=== PATIENT | female | born 1975 | race Caucasian/White ===

== ENCOUNTER → 2019-06-15 11:42 | Outpatient (BNVA) | payer BC, SELFPAY | PROVIDERS: Family Provider Nurse Practitioner; PCP Nurse Practitioner; Visit Provider Nurse Practitioner | DX: M79.641 Pain in right hand (principal) | CPT/HCPCS: 73130 ==

== ENCOUNTER → 2019-06-17 13:55 | Outpatient (BNVA) | payer BC, SELFPAY | PROVIDERS: Family Provider Nurse Practitioner; PCP Nurse Practitioner; Visit Provider Nurse Practitioner | DX: G89.29 Other chronic pain (principal); M54.41 Lumbago with sciatica, right side; F17.210 Nicotine dependence, cigarettes, uncomplicated; Z79.891 Long term (current) use of opiate analgesic | CPT/HCPCS: 99213 ==

== ENCOUNTER → 2019-07-15 12:44 | Outpatient (BNVA) | payer BC, SELFPAY | PROVIDERS: Family Provider Nurse Practitioner; PCP Nurse Practitioner; Visit Provider Nurse Practitioner | DX: G89.29 Other chronic pain (principal); M54.41 Lumbago with sciatica, right side; F17.210 Nicotine dependence, cigarettes, uncomplicated; Z79.891 Long term (current) use of opiate analgesic | CPT/HCPCS: 99213 ==

== ENCOUNTER → 2019-08-31 10:54 | Outpatient (BNVA) | payer BC, SELFPAY | PROVIDERS: Family Provider Nurse Practitioner; PCP Nurse Practitioner; Visit Provider Nurse Practitioner | DX: I10 Essential (primary) hypertension (principal); M54.41 Lumbago with sciatica, right side; E89.41 Symptomatic postprocedural ovarian failure; R12 Heartburn; J30.1 Allergic rhinitis due to pollen; E78.5 Hyperlipidemia, unspecified; K59.01 Slow transit constipation; R20.2 Paresthesia of skin; R73.9 Hyperglycemia, unspecified | CPT/HCPCS: 80053; 80061; 83036 ==

== ENCOUNTER → 2019-12-08 11:42 | Outpatient (BNVA) | payer BC, SELFPAY | PROVIDERS: Family Provider Nurse Practitioner; PCP Nurse Practitioner; Visit Provider Nurse Practitioner Family | DX: M18.12 Unilateral primary osteoarthritis of first carpometacarpal joint, left hand (principal); M79.642 Pain in left hand; M79.89 Other specified soft tissue disorders | CPT/HCPCS: 73130; 84550; 85651; 86038; 86140; 86431 ==

== ENCOUNTER → 2020-01-10 11:00 | Outpatient (BNVA) | payer BC, SELFPAY | PROVIDERS: Family Provider Nurse Practitioner; PCP Nurse Practitioner; Visit Provider Nurse Practitioner Family | DX: Z20.828 Contact with and (suspected) exposure to other viral communicable diseases (principal); R51 Headache; R11.0 Nausea | CPT/HCPCS: 87635 ==

== ENCOUNTER → 2020-01-25 14:11 | Outpatient (BNVA) | payer BC, SELFPAY | PROVIDERS: Family Provider Nurse Practitioner; PCP Nurse Practitioner; Visit Provider Nurse Practitioner Family | DX: M25.571 Pain in right ankle and joints of right foot (principal); S99.919A Unspecified injury of unspecified ankle, initial encounter; X58.XXXA Exposure to other specified factors, initial encounter | CPT/HCPCS: 73610 ==

== ENCOUNTER → 2020-02-08 10:01 | Outpatient (BNVA) | payer BC, SELFPAY | PROVIDERS: Family Provider Nurse Practitioner; PCP Nurse Practitioner; Visit Provider Internal Medicine Rheumatology | DX: M05.79 Rheumatoid arthritis with rheumatoid factor of multiple sites without organ or systems involvement (principal); Z79.899 Other long term (current) drug therapy; Z11.59 Encounter for screening for other viral diseases; Z11.1 Encounter for screening for respiratory tuberculosis; G56.01 Carpal tunnel syndrome, right upper limb; F17.210 Nicotine dependence, cigarettes, uncomplicated | CPT/HCPCS: 36415; 80076; 82306; 82565; 85025; 86480; 86704; 86803; 87340; 99204 ==

== ENCOUNTER 2020-02-15 11:48 | Outpatient (CLI) | payer BC, SELFPAY ==
--- NOTE | 2020-02-15 12:03 | XR_ITS ---
WS: [id number] PROCEDURE: XR chest 2V* [id number] CLINICAL INFORMATION: rheumatoid arthritis COMPARISON: February 09, 2018 FINDINGS: Heart: Normal cardiac silhouette. Lungs: Lungs are clear. No consolidation or pleural fluid. Bones: Normal visualized bony structures. XR/XR chest 2V* [id number] IMPRESSION: No acute chest findings.
== END 2020-02-15 11:49 | disposition home or self-care (01) ==
LOC: RADWPI 11:52
PROVIDERS: Family Provider Nurse Practitioner; PCP Nurse Practitioner; Visit Provider Internal Medicine Rheumatology
DX: M05.9 Rheumatoid arthritis with rheumatoid factor, unspecified (principal)
CPT/HCPCS: 71046

== ENCOUNTER → 2020-02-17 09:10 | Outpatient (BNVA) | payer BC, SELFPAY | PROVIDERS: Family Provider Nurse Practitioner; PCP Nurse Practitioner; Visit Provider Nurse Practitioner | DX: E11.69 Type 2 diabetes mellitus with other specified complication (principal); E66.9 Obesity, unspecified; E04.9 Nontoxic goiter, unspecified | CPT/HCPCS: 80048; 80061; 83036; 84443 ==

== ENCOUNTER → 2020-02-22 10:53 | Outpatient (BNVA) | payer BC, SELFPAY | PROVIDERS: Family Provider Nurse Practitioner; PCP Nurse Practitioner; Visit Provider Internal Medicine Rheumatology | DX: Z79.899 Other long term (current) drug therapy (principal) | CPT/HCPCS: 36415; 80076; 82565; 85025; 85651; 86140 ==

== ENCOUNTER → 2020-04-16 09:11 | Outpatient (BNVA) | payer BC, SELFPAY | PROVIDERS: PCP Nurse Practitioner; Visit Provider Internal Medicine Rheumatology | DX: Z79.899 Other long term (current) drug therapy (principal); Z11.59 Encounter for screening for other viral diseases | CPT/HCPCS: 36415; 87517 ==

== ENCOUNTER → 2020-05-23 11:28 | Outpatient (BNVA) | payer BC, SELFPAY | PROVIDERS: PCP Nurse Practitioner; Visit Provider Nurse Practitioner | DX: E11.69 Type 2 diabetes mellitus with other specified complication (principal); E66.9 Obesity, unspecified; I10 Essential (primary) hypertension; J30.1 Allergic rhinitis due to pollen; M54.41 Lumbago with sciatica, right side; E89.41 Symptomatic postprocedural ovarian failure; E78.5 Hyperlipidemia, unspecified; R19.5 Other fecal abnormalities; K59.01 Slow transit constipation; M25.561 Pain in right knee | CPT/HCPCS: 80053 ==

== ENCOUNTER → 2020-06-06 09:03 | Outpatient (BNVA) | payer BC, SELFPAY | PROVIDERS: PCP Nurse Practitioner; Visit Provider Nurse Practitioner | DX: R19.5 Other fecal abnormalities (principal); M25.561 Pain in right knee | CPT/HCPCS: 73562; 74018 ==

== ENCOUNTER → 2020-06-08 10:52 | Outpatient (BNVA) | payer BC, SELFPAY | PROVIDERS: PCP Nurse Practitioner; Visit Provider Nurse Practitioner Family | DX: Z20.828 Contact with and (suspected) exposure to other viral communicable diseases (principal); J06.9 Acute upper respiratory infection, unspecified | CPT/HCPCS: 87635 ==

== ENCOUNTER → 2020-07-26 10:38 | Outpatient (BNVA) | payer BC, SELFPAY | PROVIDERS: PCP Nurse Practitioner; Visit Provider Nurse Practitioner Family | DX: M05.79 Rheumatoid arthritis with rheumatoid factor of multiple sites without organ or systems involvement (principal); M19.90 Unspecified osteoarthritis, unspecified site; Z79.899 Other long term (current) drug therapy | CPT/HCPCS: 80076; 82565; 85025; 86140 ==

== ENCOUNTER → 2020-10-11 08:21 | Outpatient (BNVA) | payer BC, SELFPAY | PROVIDERS: PCP Nurse Practitioner; Visit Provider Internal Medicine Rheumatology | DX: M05.79 Rheumatoid arthritis with rheumatoid factor of multiple sites without organ or systems involvement (principal); Z79.899 Other long term (current) drug therapy | CPT/HCPCS: 36415; 80076; 82565; 85025; 86140 ==

== ENCOUNTER → 2020-10-15 12:40 | Outpatient (BNVA) | payer BC, SELFPAY | PROVIDERS: PCP Nurse Practitioner; Visit Provider Internal Medicine Rheumatology | DX: M05.79 Rheumatoid arthritis with rheumatoid factor of multiple sites without organ or systems involvement (principal); Z79.899 Other long term (current) drug therapy; E66.9 Obesity, unspecified; Z68.41 Body mass index [BMI] 40.0-44.9, adult; F17.210 Nicotine dependence, cigarettes, uncomplicated; E11.9 Type 2 diabetes mellitus without complications | CPT/HCPCS: 99214 ==

== ENCOUNTER → 2020-11-21 08:28 | Outpatient (BNVA) | payer BC, SELFPAY | PROVIDERS: PCP Nurse Practitioner; Visit Provider Nurse Practitioner | DX: E11.69 Type 2 diabetes mellitus with other specified complication (principal); E66.9 Obesity, unspecified; E78.2 Mixed hyperlipidemia | CPT/HCPCS: 80053; 80061; 83036; 84443 ==

== ENCOUNTER → 2021-03-14 08:50 | Outpatient (BNVA) | payer BC, SELFPAY | PROVIDERS: PCP Nurse Practitioner; Visit Provider Nurse Practitioner | DX: I10 Essential (primary) hypertension (principal); J45.20 Mild intermittent asthma, uncomplicated; J30.1 Allergic rhinitis due to pollen; M54.41 Lumbago with sciatica, right side; E89.41 Symptomatic postprocedural ovarian failure; E11.69 Type 2 diabetes mellitus with other specified complication; E66.9 Obesity, unspecified; K59.01 Slow transit constipation; E78.2 Mixed hyperlipidemia; Z23 Encounter for immunization; M05.79 Rheumatoid arthritis with rheumatoid factor of multiple sites without organ or systems involvement; Z79.899 Other long term (current) drug therapy | CPT/HCPCS: 80053; 80061; 80076; 82043; 82565; 83036; 85025; 86140 ==

== ENCOUNTER → 2021-03-26 09:28 | Outpatient (BNVA) | payer BC, SELFPAY | PROVIDERS: PCP Nurse Practitioner; Visit Provider Internal Medicine Rheumatology | DX: M05.79 Rheumatoid arthritis with rheumatoid factor of multiple sites without organ or systems involvement (principal); Z79.899 Other long term (current) drug therapy; E11.69 Type 2 diabetes mellitus with other specified complication; E66.9 Obesity, unspecified; Z68.41 Body mass index [BMI] 40.0-44.9, adult; Z71.89 Other specified counseling; F17.200 Nicotine dependence, unspecified, uncomplicated | CPT/HCPCS: 99214 ==

== ENCOUNTER 2021-04-14 15:35 | Emergency (ER) | payer BC, SELFPAY ==
[2021-04-14 15:50] VITALS: BP 142/87; PULSE 73; RESP 16; TEMP 36.9; O2SAT 95; BMI 46.9
[2021-04-14 16:35] VITALS: BP 139/85; PULSE 77; RESP 20; O2SAT 96
--- NOTE | 2021-04-14 16:41 | ED_ITS ---
HPI - Extremity Problem General: Chief complaint: Extremity Injury, Lower Stated complaint: RIGHT LEG PAIN Time Seen by Provider: 04/14/21 16:34 History of Present Illness: HPI Narrative: Patient is a 46-year-old female who comes to the ED with lower back pain that radiates down right leg. Pain started last night while laying down. Patient says she is had this pain in the past but says this time its little more painful. She describes the pain as sharp and she rates it a 10 out of 10. She says standing up and ambulating causes more pain radiating down her right leg. She denies any injury, trauma or accident to cause acute onset of pain. Denies any bladder or bowel incontinence, pelvic anesthesia or any weakness to lower extremities. Associated symptoms: Deny chest pain, fever(s) or rash Review of Systems Const: Denies: fever(s), chills or fatigue Eyes: Denies: change in vision or eye discomfort ENMT: Denies: throat pain, odynophagia, nasal discharge or nasal congestion Card: Denies: chest pain, palpitations, edema, swelling of feet/ankles, dyspnea on exertion or orthopnea Resp: Denies: dyspnea, productive cough or non-productive cough GI: Denies: abdominal pain, nausea, vomiting, diarrhea, constipation or hematochezia : Denies: flank pain, dysuria or hematuria Musc: Reports: back pain (Lower back pain that radiates down into her right leg.); Denies: neck pain or extremity swelling Skin/Breast: Denies: rash or new lesions Neuro: Denies: headache(s), numbness in extremities or weakness in extremities [facility] ED PFSH: Medical History (Updated 04/14/21 @ 16:49 by ELVIS Smith) Asthma, mild intermittent Chronic bilateral low back pain with right-sided sciatica Chronic heartburn Constipation due to slow transit Diabetes mellitus type 2 in obese Encounter for long-term (current) use of NSAIDs Encounter for long-term use of opiate analgesic Encounter for smoking cessation counseling Essential (primary) hypertension High risk medication use Hyperlipidemia, unspecified Immunization counseling Opioid contract exists Seasonal allergic rhinitis due to pollen Seropositive rheumatoid arthritis of multiple sites Surgical menopause, symptomatic Surgical History History of colonoscopy 2017 History of hysterectomy 2007 with BSO Family History Mother Cancer Father Hypertension COPD exacerbation Other Diabetes Rheumatoid arthritis Denies family history of Lupus Social History Second hand smoke exposure: Yes Smoking risk assessment/counseling performed?: Yes Alcohol intake: current Alcohol intake frequency: holidays/special occasions only Desire information about alcohol rehabilitation?: No Counseling given: No Desire information about substance/drug rehabilitation?: No Counseling given: No Caregiver/support person: No Lives independently: Yes Household members: significant other Housing: House Marital status: Single Number of children: 0 Current occupational status: employed Current occupation: [employer] History of recent travel: No Current gender identity: Female Physical Exam Const: COMMON NORMALS: patient oriented x3 HENMT: COMMON NORMALS: normocephalic HEAD & SCALP: normocephalic MOUTH: Normal oral and palatal mucosa present THROAT: posterior oropharynx normal and uvula midline Neck/C-Spine: COMMON NORMALS: supple GENERAL: Yes normal visual inspection Resp: COMMON NORMALS: normal respiratory effort, No retractions, No use of accessory muscles and clear to auscultation bilaterally AUSCULTATION: clear to auscultation bilaterally Cardio: COMMON NORMALS: regular rate, regular rhythm, S1 normal heart sound present, S2 normal heart sound present, No gallops present (Cardio), No clicks present (Cardio), No murmurs present (Cardio) and Peripheral pulses 2+ throughout RATE: regular rate RHYTHM: regular rhythm HEART SOUNDS: S1 normal heart sound present and S2 normal heart sound present PERIPHERAL PULSES: Peripheral pulses 2+ throughout GI: COMMON NORMALS: Normal to inspection, nondistended, normoactive bowel sounds present, Soft to palpation, non-tender and no masses PALPATION: Yes Soft to palpation : COMMON NORMALS: Yes no CVA tenderness BLADDER/KIDNEY EXAM: Yes no CVA tenderness Back/Pelvis: COMMON NORMALS: no CVA tenderness LUMBAR SPINE/LOWER BACK: Yes pain with ROM, Yes paraspinal muscle tenderness Lumbar paraspinal muscle tenderness: right Right lumbar paraspinal muscle tenderness: L4 and L5 and Yes straight leg raise positive right Extremity: COMMON NORMALS: normal to inspection Neuro: COMMON NORMALS: patient oriented x3 and moves all extremities Skin: GENERAL SKIN EXAM: dry skin Course Vital Signs: Vital signs: Vital Signs Temperature 98.4 F 04/14/21 15:50 Pulse Rate 77 04/14/21 16:35 Respiratory Rate 20 H 04/14/21 16:35 Blood Pressure 139/85 04/14/21 16:35 Pulse Oximetry 96 04/14/21 16:35 MDM - Extremity (Nontraumatic) MDM Narrative: Medical decision making narrative: Patient is a 46-year-old female comes to the ED with acute on chronic lower back pain. Pain radiates down the right leg. Denies any trauma, injury or fall to cause symptoms. De nies any cauda equina symptoms. Vital stable. Patient diagnosed with lumbar radiculopathy she was discharged home with a prescription for Celebrex, cyclobenzaprine and prednisone. She is told to follow-up with her PCP in 7 to 10 days for reevaluation. Return to ED precautions given. Patient understood and agree with plan. Discharge Plan Discharge Patient Disposition: Home Clinical Impression: Lumbar radiculopathy Condition: Stable Prescriptions: New Celebrex 100 mg capsule 100 mg PO BID PRN (Reason: pain) Qty: 20 RF: 0 prednisone 20 mg tablet 20 mg PO BID 5 Days Qty: 10 RF: 0 cyclobenzaprine 10 mg tablet 10 mg PO BID PRN (Reason: muscle spasm) Qty: 20 RF: 0 No Action lisinopril 40 mg tablet 40 mg PO DAILY Qty: 30 RF: 2 albuterol sulfate [ProAir HFA] 90 mcg/actuation HFA aerosol inhaler 2 inh INHALATION QID PRN (Reason: shortness of breath or wheezing) Qty: 8.5 RF: 2 cetirizine 10 mg tablet 10 mg PO DAILY Qty: 30 RF: 2 duloxetine 20 mg capsule,delayed release(DR/EC) 20 mg PO BID Qty: 60 RF: 2 estradiol 0.5 mg tablet 0.5 mg PO DAILY Qty: 30 RF: 2 furosemide 20 mg tablet 20 mg PO DAILY Qty: 30 RF: 2 Victoza 2-Chandler 0.6 mg/0.1 mL (18 mg/3 mL) pen injector 0.6 mg SUBCUT DAILY Qty: 6 RF: 2 magnesium oxide 400 mg (241.3 mg magnesium) tablet 400 mg PO BID Qty: 60 RF: 2 rosuvastatin 40 mg tablet 40 mg PO DAILY Qty: 30 RF: 2 cyclobenzaprine 10 mg tablet 10 mg PO TID PRN (Reason: muscle spasm) Qty: 90 RF: 1 hydrocodone-acetaminophen 5-325 mg tablet 1 tab PO BID PRN (Reason: pain) 30 Days Qty: 60 RF: 0 methocarbamol 500 mg tablet 500 mg PO TID PRN (Reason: muscle spasm) Qty: 90 RF: 1 naproxen [EC-Naprosyn] 500 mg tablet,delayed release (DR/EC) 500 mg PO BID PRN (Reason: pain) Qty: 60 RF: 1 ipratropium-albuterol 0.5 mg-3 mg(2.5 mg base)/3 mL solution for nebulization 3 ml INHALATION QID PRNRF: 0 multivitamin Capsule 1 cap PO DAILY RF: 0 cholecalciferol (vitamin D3) 25 mcg (1,000 unit) capsule 25 mcg PO DAILY RF: 0 acetaminophen [Arthritis Pain Relief (acetam)] 650 mg tablet extended release 650 mg PO Q12H RF: 0 Enbrel SureClick 50 mg/mL (1 mL) pen injector 50 mg SUBCUT .Q7days Qty: 4 RF: 3 methotrexate sodium 2.5 mg tablet See Rx Instructions PO .week Qty: 40 RF: 3 pantoprazole 40 mg tablet,delayed release (DR/EC) See Rx Instructions PO DAILY Qty: 90 RF: 1 prednisone 10 mg tablet 10 mg PO DAILY Qty: 90 RF: 1 (DME) pen needle, diabetic 33 gauge x 5/32 needle See Rx Instructions .ROUTE .MEDSUPPLY Qty: 100 RF: 5 folic acid 1 mg tablet 1 mg PO DAILY Qty: 90 RF: 3 Discharge Orders: Discharge ED (Routine); Ordered 04/14/21 Ordered By: Onel Liu Referrals: Mireya Ross, [facility] [Primary Care Provider] - Discharge Diet: Regular Discharge Activity: Increase activity as tolerated Patient Instructions: Lumbar Radiculopathy (ED), Lower Back Exercises (ED) Activity Restrictions/Additional Instructions: Follow-up with medical provider as directed in 5 to 7 days for reevaluation. Take medications as prescribed. Rest and limit activity for the next couple days to allow back to heal. Apply cold pack or heat on back to help with symptoms. Cyclobenzaprine is a muscle relaxer and can cause some drowsiness so take at night before going to bed. Return to the ER or your medical provider if condition worsens. Please read and understand discharge instructions. Thank you for choosing [facility] for your healthcare needs today. Please realize this is an emergency room and that we are providing you with a medical screening exam and this may not be complete and all inclusive of all the testing and or work up that you may need to determine your ailment or severity of your illness. It is very important that you follow up as instructed or that you return to the Emergency Department should you have concerns or if your condition changes or worsens in any way. Coding Level of Care Code ED Photo Technician for Jana Fwryan Exam Comprehensive
[2021-04-14] MEDS: ketorolac 60 mg/2 mL INJ IM (16:47)
[2021-04-14] MEDS: orphenadrine 30 mg/mL Inj 2 mL 60 MG IM (16:47)
[2021-04-14] MEDS: dexamethasone 10 mg/mL INJ IM (16:48)
== END 2021-04-14 17:19 | disposition home or self-care (01) ==
PROVIDERS: Emergency Provider Physician Assistant; PCP Nurse Practitioner
DX: M54.16 Radiculopathy, lumbar region (principal); E11.9 Type 2 diabetes mellitus without complications; I10 Essential (primary) hypertension; E78.5 Hyperlipidemia, unspecified; Z77.22 Contact with and (suspected) exposure to environmental tobacco smoke (acute) (chronic)
CPT/HCPCS: 96372; 99283; J1100; J1885; J2360

== ENCOUNTER → 2021-07-08 11:00 | Outpatient (BNVA) | payer BC, SELFPAY | PROVIDERS: PCP Nurse Practitioner; Visit Provider Internal Medicine Rheumatology | DX: Z79.899 Other long term (current) drug therapy (principal); M05.79 Rheumatoid arthritis with rheumatoid factor of multiple sites without organ or systems involvement | CPT/HCPCS: 80076; 82565; 85025; 86140 ==

== ENCOUNTER 2021-07-19 13:56 | Outpatient (CLI) | payer BC, SELFPAY ==
--- NOTE | 2021-07-19 14:30 | MM_ITS ---
WS: [id number] BILATERAL SCREENING DIGITAL MAMMOGRAM WITH CAD HISTORY: Z12.39 - Encounter for other screening for malignant neoplasm. COMPARISON: 12/30/2018 and 12/04/2015 Bilateral CC and MLO views submitted. Computer aided detection analyzed. Breast composition: There are scattered areas of fibroglandular density. No suspicious masses, microc alcifications or architectural distortion. Benign intramammary lymph nodes. MM/[place] [id number] IMPRESSION: BI-RADS: 2-Benign FOLLOW UP: 1 Year Follow-up
== END 2021-07-19 13:57 | disposition home or self-care (01) ==
PROVIDERS: PCP Nurse Practitioner; Visit Provider Nurse Practitioner
DX: Z12.31 Encounter for screening mammogram for malignant neoplasm of breast (principal)
CPT/HCPCS: 77067

== ENCOUNTER 2021-08-28 09:02 | Outpatient (CLI) | payer BC, SELFPAY ==
--- NOTE | 2021-08-28 09:37 | XR_ITS ---
WS: [id number] Exam: XR thoracic spine 3V* [id number] Date/Time of Exam: 08/28/2021 9:47 AM Reason For Exam: M54.41 - Lumbago with sciatica, right side No fracture or dislocation noted. Mild spondylosis. Slight dextroscoliosis. Paraspinal soft tissues a re unremarkable. XR/XR thoracic spine 3V* [id number] IMPRESSION: 1. No fracture or malalignment. 2. Mild DJD and slight dextroscoliosis.
--- NOTE | 2021-08-28 09:37 | XR_ITS ---
WS: [id number] Exam: XR lumbar spine 2-3V* [id number] Date/Time of Exam: 08/28/2021 9:47 AM Reason For Exam: M54.41 - Lumbago with sciatica, right side Comparison 08/16/2015. No fracture or dislocation. Disc spaces are preserved. Mild facet DJD at L4-5 and L5-S1. Slight levos coliosis. XR/XR lumbar spine 2-3V* [id number] IMPRESSION: 1. No fracture or malalignment. 2. Minimal degenerative changes. Slight scoliosis.
== END 2021-08-28 09:03 | disposition home or self-care (01) ==
LOC: RAD 09:07
PROVIDERS: PCP Nurse Practitioner; Visit Provider Nurse Practitioner
DX: M54.41 Lumbago with sciatica, right side (principal); G89.29 Other chronic pain; M47.814 Spondylosis without myelopathy or radiculopathy, thoracic region; M41.84 Other forms of scoliosis, thoracic region
CPT/HCPCS: 72072; 72100

== ENCOUNTER → 2021-12-09 15:53 | Outpatient (BNVA) | payer BC, SELFPAY | PROVIDERS: PCP Nurse Practitioner; Visit Provider Internal Medicine Rheumatology | DX: M47.814 Spondylosis without myelopathy or radiculopathy, thoracic region (principal); M54.30 Sciatica, unspecified side; Z79.899 Other long term (current) drug therapy; M05.79 Rheumatoid arthritis with rheumatoid factor of multiple sites without organ or systems involvement; Z71.89 Other specified counseling; M53.86 Other specified dorsopathies, lumbar region | CPT/HCPCS: 36415; 80076; 82565; 85025; 86140 ==

== ENCOUNTER → 2022-03-14 09:51 | Outpatient (BNVA) | payer BC, SELFPAY | PROVIDERS: PCP Nurse Practitioner; Visit Provider Nurse Practitioner | DX: K59.04 Chronic idiopathic constipation (principal); J30.1 Allergic rhinitis due to pollen; M54.41 Lumbago with sciatica, right side; E89.41 Symptomatic postprocedural ovarian failure; I10 Essential (primary) hypertension; E11.69 Type 2 diabetes mellitus with other specified complication; E66.9 Obesity, unspecified; E78.2 Mixed hyperlipidemia; Z23 Encounter for immunization | CPT/HCPCS: 80053; 80061; 83036; 84443 ==

== ENCOUNTER → 2022-06-06 09:36 | Outpatient (BNVA) | payer BC, SELFPAY | PROVIDERS: PCP Nurse Practitioner; Visit Provider Nurse Practitioner | DX: E11.69 Type 2 diabetes mellitus with other specified complication (principal); E66.9 Obesity, unspecified; M54.41 Lumbago with sciatica, right side; E89.41 Symptomatic postprocedural ovarian failure; I10 Essential (primary) hypertension; K59.04 Chronic idiopathic constipation; E78.2 Mixed hyperlipidemia; M79.10 Myalgia, unspecified site | CPT/HCPCS: 80053 ==

== ENCOUNTER → 2022-08-29 09:16 | Outpatient (BNVA) | payer BC, SELFPAY | PROVIDERS: PCP Nurse Practitioner; Visit Provider Nurse Practitioner | DX: J30.1 Allergic rhinitis due to pollen (principal); M54.41 Lumbago with sciatica, right side; E89.41 Symptomatic postprocedural ovarian failure; I10 Essential (primary) hypertension; K59.04 Chronic idiopathic constipation; M79.10 Myalgia, unspecified site; E78.2 Mixed hyperlipidemia; E11.69 Type 2 diabetes mellitus with other specified complication; E66.9 Obesity, unspecified; R23.8 Other skin changes | CPT/HCPCS: 80053; 80061; 82043; 83036; 84443 ==

== ENCOUNTER 2022-09-26 11:14 | Outpatient (CLI) | payer BC, SELFPAY ==
--- NOTE | 2022-09-26 11:20 | MM_ITS ---
WS: [id number] BILATERAL SCREENING DIGITAL TOMOSYNTHESIS MAMMOGRAM WITH CAD HISTORY: Screening. COMPARISON: 07/19/2021 and 12/30/2018 Bilateral CC and MLO views with tomosynthesis and synthetic mammography submitted. Computer aided det ection analyzed. Breast composition: The breasts are almost entirely fatty. No suspicious masses, microcalcifications or architectural distortion. Benign intramammary lymph nodes. MM/[place] [id number] IMPRESSION: BI-RADS: 2-Benign FOLLOW UP: 1 Year Follow-up
== END 2022-09-26 11:15 | disposition home or self-care (01) ==
LOC: RAD 11:15
PROVIDERS: PCP Nurse Practitioner; Visit Provider Nurse Practitioner
DX: Z12.31 Encounter for screening mammogram for malignant neoplasm of breast (principal)
CPT/HCPCS: 77063; 77067

== ENCOUNTER → 2023-02-20 10:22 | Outpatient (BNVA) | payer BC, SELFPAY | PROVIDERS: PCP Nurse Practitioner; Visit Provider Nurse Practitioner | DX: E11.69 Type 2 diabetes mellitus with other specified complication (principal); E66.9 Obesity, unspecified; M53.86 Other specified dorsopathies, lumbar region; J30.1 Allergic rhinitis due to pollen; I10 Essential (primary) hypertension; M54.41 Lumbago with sciatica, right side; E89.41 Symptomatic postprocedural ovarian failure; J45.909 Unspecified asthma, uncomplicated; K59.04 Chronic idiopathic constipation; M79.10 Myalgia, unspecified site; E78.2 Mixed hyperlipidemia | CPT/HCPCS: 80053; 80061 ==

== ENCOUNTER → 2023-06-11 10:01 | Outpatient (BNVA) | payer BC, SELFPAY | PROVIDERS: PCP Nurse Practitioner; Visit Provider Nurse Practitioner | DX: M53.86 Other specified dorsopathies, lumbar region (principal); I10 Essential (primary) hypertension; M54.41 Lumbago with sciatica, right side; E89.41 Symptomatic postprocedural ovarian failure; J45.909 Unspecified asthma, uncomplicated; K59.04 Chronic idiopathic constipation; M79.10 Myalgia, unspecified site; E78.2 Mixed hyperlipidemia; E11.69 Type 2 diabetes mellitus with other specified complication; E66.9 Obesity, unspecified; E11.9 Type 2 diabetes mellitus without complications; F41.9 Anxiety disorder, unspecified | CPT/HCPCS: 80053; 80061; 82607; 83036 ==

== ENCOUNTER 2023-10-06 08:46 | Outpatient (CLI) | payer BC, SELFPAY ==
--- NOTE | 2023-10-06 09:00 | MM_ITS ---
WS: [id number] BILATERAL 3D TOMOSYNTHESIS DIGITAL SCREENING MAMMOGRAPHY WITH CAD CLINICAL INFORMATION: Z12.31 - Encounter for screening mammogram for malignant ... HISTORY: Screening mammogram. No current complaints. COMPARISON: 2022 TECHNIQUE: Bilateral CC and MLO views. FINDINGS: Scattered fibroglandular densities bilaterally. No suspicious focal mass, asymmetry, calcifications, or architectural distortion. No evidence of malignancy. A few stable incidental intramammary lymph no riley. MM/[place] [id number] IMPRESSION: BI-RADS: 2-Benign FOLLOW UP: 1 Year Follow-up Recommend return to annual screening mammography.
== END 2023-10-06 08:47 | disposition home or self-care (01) ==
LOC: MOBLMAM 08:50
PROVIDERS: PCP Nurse Practitioner; Visit Provider Nurse Practitioner
DX: Z12.31 Encounter for screening mammogram for malignant neoplasm of breast (principal)
CPT/HCPCS: 77063; 77067

== ENCOUNTER → 2023-11-19 09:38 | Outpatient (BNVA) | payer BC, SELFPAY | PROVIDERS: PCP Nurse Practitioner; Visit Provider Nurse Practitioner | DX: E11.9 Type 2 diabetes mellitus without complications (principal); E11.69 Type 2 diabetes mellitus with other specified complication; E66.9 Obesity, unspecified; M53.86 Other specified dorsopathies, lumbar region; J30.1 Allergic rhinitis due to pollen; I10 Essential (primary) hypertension; M54.41 Lumbago with sciatica, right side; E89.41 Symptomatic postprocedural ovarian failure; J45.909 Unspecified asthma, uncomplicated; F41.9 Anxiety disorder, unspecified; K59.04 Chronic idiopathic constipation; M79.10 Myalgia, unspecified site; E78.2 Mixed hyperlipidemia | CPT/HCPCS: 80053; 80061; 83036 ==

== ENCOUNTER → 2024-07-11 14:02 | Outpatient (BNVA) | payer BC, SELFPAY | PROVIDERS: PCP Nurse Practitioner; Visit Provider Nurse Practitioner | DX: M53.86 Other specified dorsopathies, lumbar region (principal); M54.41 Lumbago with sciatica, right side; G89.29 Other chronic pain; I10 Essential (primary) hypertension; E89.41 Symptomatic postprocedural ovarian failure; J45.909 Unspecified asthma, uncomplicated; F41.9 Anxiety disorder, unspecified; L73.9 Follicular disorder, unspecified; K59.04 Chronic idiopathic constipation; E78.2 Mixed hyperlipidemia; E11.69 Type 2 diabetes mellitus with other specified complication; E66.9 Obesity, unspecified; J45.20 Mild intermittent asthma, uncomplicated | CPT/HCPCS: 80053; 80061; 83036 ==

== ENCOUNTER 2024-10-14 10:10 | Outpatient (CLI) | payer BC, SELFPAY ==
--- NOTE | 2024-10-14 10:20 | MM_ITS ---
WS: [id number] BILATERAL SCREENING DIGITAL TOMOSYNTHESIS MAMMOGRAM WITH CAD HISTORY: Z12.31 - Encounter for screening mammogram for malignant ... COMPARISON: 10/06/2023, 09/26/2022 Bilateral CC and MLO views with tomosynthesis and synthetic mammography submitted. Computer aided detection analyzed. Breast composition: The breasts are almost entirely fatty. No suspicious masses, microcalcifications or architectural distortion. Bilateral intramammary lymph nodes. MM/MM scr BI tomosynthesis [id number] IMPRESSION: BI-RADS: 2 - Benign. FOLLOW UP: 1 Year Follow-up
== END 2024-10-14 10:11 | disposition home or self-care (01) ==
LOC: RAD 10:11
PROVIDERS: PCP Nurse Practitioner; Visit Provider Nurse Practitioner
DX: Z12.31 Encounter for screening mammogram for malignant neoplasm of breast (principal); R92.313 Mammographic fatty tissue density, bilateral breasts; R59.0 Localized enlarged lymph nodes
CPT/HCPCS: 77063; 77067

== ENCOUNTER → 2024-12-29 11:47 | Outpatient (BNVA) | payer BC, SELFPAY | PROVIDERS: PCP Nurse Practitioner; Referring Provider Nurse Practitioner; Visit Provider Internal Medicine Rheumatology | DX: Z79.899 Other long term (current) drug therapy (principal) | CPT/HCPCS: 36415; 80076; 82306; 82565; 85025; 85651; 86140; 86480; 86704; 86803; 87340 ==

== ENCOUNTER → 2025-01-12 11:46 | Outpatient (BNVA) | payer BC, SELFPAY | PROVIDERS: PCP Nurse Practitioner; Visit Provider Nurse Practitioner | DX: E11.69 Type 2 diabetes mellitus with other specified complication (principal); E66.9 Obesity, unspecified; E04.9 Nontoxic goiter, unspecified; I10 Essential (primary) hypertension | CPT/HCPCS: 80048; 80061; 83036; 84443; 87086 ==

== ENCOUNTER → 2025-05-04 16:10 | Outpatient (BNVA) | payer BC, SELFPAY | PROVIDERS: PCP Nurse Practitioner; Visit Provider Nurse Practitioner | DX: E55.9 Vitamin D deficiency, unspecified (principal); E11.69 Type 2 diabetes mellitus with other specified complication; E66.9 Obesity, unspecified; Z68.41 Body mass index [BMI] 40.0-44.9, adult | CPT/HCPCS: 80053; 82306 ==

== ENCOUNTER → 2025-05-18 16:29 | Outpatient (BNVA) | payer BC, SELFPAY | PROVIDERS: PCP Nurse Practitioner; Visit Provider Nurse Practitioner | DX: Z12.4 Encounter for screening for malignant neoplasm of cervix (principal) | CPT/HCPCS: 88175 ==